=== PATIENT | male | born 1970 | race Caucasian/White ===

== ENCOUNTER 2016-10-21 13:31 | Emergency (ER) | payer SELFPAY ==
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
[2016-10-21] MEDS ORDERED: MELOXICAM 15 MG TABLET PO ONE (14:59)
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
[2016-10-21 16:07] VITALS: BP 154/93
== END 2016-10-21 15:50 | disposition home or self-care (01) ==
LOC: ER 13:31
DX: M25.511 Pain in right shoulder (principal); V18.9XXA Unspecified pedal cyclist injured in noncollision transport accident in traffic accident, initial encounter; G89.29 Other chronic pain; S46.001S Unspecified injury of muscle(s) and tendon(s) of the rotator cuff of right shoulder, sequela; X58.XXXS Exposure to other specified factors, sequela; Z91.013 Allergy to seafood; Z88.1 Allergy status to other antibiotic agents
CPT/HCPCS: 99283; 73030; L3650

== ENCOUNTER 2016-12-31 15:48 | Emergency (ER) | payer SELFPAY ==
[2016-12-31] MEDS ORDERED: PENICILLIN V POTASSIUM 250 MG TABLET PO ONE (16:25)
[2016-12-31] MEDS ORDERED: BUPIVACAINE HCL 0.5 % INJ/PF 30 ML SDV INJ ONE (16:25)
--- NOTE | 2016-12-31 16:37 | ER Document Report ---
HPI - HPI Pain Level: 4 Context: He is a female presents emergency Department complaining of tooth pain. Patient has a history of fractured tooth #5. States that he is due to have it pulled once his insurance is able to cover it. Patient admits to pain at the area for the past week. Denies any foul odor, drainage, difficulty swallowing, trismus, muffled speech. Denies fevers or chills - DERM Skin Color: Normal Past Medical History - Social History Smoking Status: Current Every Day Smoker Family History: Reviewed & Not Pertinent Patient has suicidal ideation: No Patient has homicidal ideation: No - Past Medical History Cardiac Medical History: Reports: Hx Congestive Heart Failure - Diastolic dysfunction Renal/ Medical History: Denies: Hx Peritoneal Dialysis GI Medical History: Reports: Hx Gastroesophageal Reflux Disease, Hx Hepatitis - Alcohol-induced Psychiatric Medical History: Reports: Hx Anxiety, Hx Attention Deficit Hyperactivity Disorder, Hx Depression Infectious Medical History: Reports: Hx Hepatitis - Alcohol-induced Past Surgical History: Reports: Hx Orthopedic Surgery - Immunizations Hx Diphtheria, Pertussis, Tetanus Vaccination: Yes Vertical Provider Document - CONSTITUTIONAL Agree With Documented VS: Yes Exam Limitations: No Limitations General Appearance: WD/WN, No Apparent Distress - INFECTION CONTROL TRAVEL OUTSIDE OF THE [place] IN LAST 30 DAYS: No - HEENT Mouth Diagram: 1 - Fractured tooth with evidence of gingival inflammation Notes: No evidence of peritonsillar retropharyngeal abscess. Airway is not compromised - NECK Neck: Normal Inspection, Other - No evidence of Chad's angina. negative: Lymphadenopathy-Left, Lymphadenopathy-Right - RESPIRATORY O2 Sat by Pulse Oximetry: 98 Course - Re-evaluation Re-evalutation: 12/31/16 17:38 Patient is a 46-year-old male seen initially stable, no acute distress and afebrile. Patient received a 5 mL dental block for his pain. Discharge home on antibiotics and follow up with his dentist - Vital Signs Vital signs: Temp Pulse Resp BP Pulse Ox 98.9 F 75 16 130/87 H 98 12/31/16 15:53 12/31/16 15:53 12/31/16 15:53 12/31/16 15:53 12/31/16 15:53 Discharge - Discharge Clinical Impression: Toothache Condition: Good Disposition: HOME, SELF-CARE Instructions: Toothache ([facility]), Oral Narcotic Medication ([facility]), Penicillin V K ( [facility]) Additional Instructions: Follow up with your dentist in 7-10 days [facility] [address] [place], [place] Monday mornings, by appointment [facility] [address] [place] [address] [facility] [place] [address] [facility] [address] [facility] [address] [facility] [email or web address] [facility] [address] [place] [address] Monday- 8:00am to 5:00 pm Will see patients from other [facility]. Charges based on income and family size and accepts Medicare, Medicaid, and Insurances Will pull molars [facility] [employer] [facility] [address] Hours of Operation 8:00 am - 4:30 pm weekdays The following dental offices accept Medicaid: [facility] Dr. Parisi Dr. Farrar Dr. Turner Dr. Tomlin Chepe Singer, Charli, and Violet oral surgery Dr. Stovall ([place]) Dr. Jimenez ([place]) [facility] Drs. Kendrick and Fabian ([place]) Dr. Powers ([place]) [facility] Dr. Bui ([place]) Drs. Young and ([place]) Medicaid Care Line Prescriptions: Oxycodone HCl/Acetaminophen [Percocet 5-325 mg Tablet] 1 - 2 tab PO Q4HP PRN # 15 tablet PRN Reason: Penicillin V Potassium [Penicillin Vk 500 mg Tablet] 500 mg PO BID #20 tablet Forms: Return to Work
[2016-12-31 17:00] VITALS: BP 121/71
== END 2016-12-31 16:59 | disposition home or self-care (01) ==
LOC: ER 15:48
PROC: 3E0T3BZ Introduction of Anesthetic Agent into Peripheral Nerves and Plexi, Percutaneous Approach (ICD-10-PCS; principal; 2016-12-31)
DX: K08.89 Other specified disorders of teeth and supporting structures (principal); K05.10 Chronic gingivitis, plaque induced; F17.200 Nicotine dependence, unspecified, uncomplicated
CPT/HCPCS: 99282

== ENCOUNTER 2017-06-18 14:01 | Emergency (ER) | payer OTHER ==
[2017-06-18 14:06] VITALS: BP 126/72
[2017-06-18] MEDS ORDERED: LIDOCAINE 2% VISCOUS SOLN 20 ML UDCUP PO ONE (14:47)
[2017-06-18] MEDS ORDERED: PENICILLIN V POTASSIUM 500 MG TABLET PO ONE (14:47)
--- NOTE | 2017-06-18 14:53 | ER Document Report ---
ED Oral Problem - General Chief Complaint: Toothache Stated Complaint: TOOTH PAIN Time Seen by Provider: 06/18/17 14:33 Mode of Arrival: Ambulatory Information source: Patient Notes: 46-year-old male presents to ED for complaint of dental pain 6-8 months intermittently. He states that he has rotten teeth on the top and that he plans to get them all out. He states he needs antibiotics for his tooth. He also states she needs pain medications. Patient claims that he has taken ibuprofen with no relief. His pain is in tooth #7. TRAVEL OUTSIDE OF THE U.S[place] IN LAST 30 DAYS: No - HPI Patient complains to provider of: Toothache Onset: Other - 6-8 months Onset: Gradual Quality of pain: Sharp, Throbbing Severity: Severe Pain Level: 5 Associated symptoms: Toothache Worsened by: Cold Relieved by: Nothing Recently seen / treated by doctor/dentist: No - Related Data Allergies/Adverse Reactions: crab Allergy (Severe, Verified 12/31/16 15:52) Difficulty breathing clindamycin Allergy (Intermediate, Verified 12/31/16 15:52) rash Past Medical History - General Information source: Patient - Social History Smoking Status: Former Smoker Cigarette use (# per day): No Chew tobacco use (# tins/day): No Smoking Education Provided: No Frequency of alcohol use: None - Former alcoholic Drug Abuse: None 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 denies: DM, Thyroid Disfunction Patient has suicidal ideation: No Patient has homicidal ideation: No - Past Medical History Cardiac Medical History: Reports: None Pulmonary Medical History: Reports: None Neurological Medical History: Reports: None Endocrine Medical History: Reports: None Renal/ Medical History: Reports: None Malignancy Medical History: Reports None GI Medical History: Reports: Hx Gastroesophageal Reflux Disease, Hx Hepatitis - Alcohol-induced Musculoskeltal Medical History: Reports Hx Musculoskeletal Trauma - Right knee dislocation Skin Medical History: Reports None Psychiatric Medical History: Reports: Hx Anxiety, Hx Attention Deficit Hyperactivity Disorder, Hx Depression Traumatic Medical History: Reports: None Infectious Medical History: Reports: Hx Hepatitis - Alcohol-induced Past Surgical History: Reports: Hx Orthopedic Surgery - Immunizations Immunizations up to date: Yes Hx Diphtheria, Pertussis, Tetanus Vaccination: Yes Review of Systems - Review of Systems Constitutional: No symptoms reported EENT: Mouth pain, Dental problem Cardiovascular: No symptoms reported Respiratory: No symptoms reported Gastrointestinal: No symptoms reported Genitourinary: No symptoms reported Male Genitourinary: No symptoms reported Musculoskeletal: No symptoms reported Skin: No symptoms reported Hematologic/Lymphatic: No symptoms reported Neurological/Psychological: No symptoms reported -: Yes All other systems reviewed and negative Physical Exam - Vital signs Vitals: Temp Pulse Resp BP Pulse Ox 99.3 F 81 20 126/72 H 98 06/18/17 14:04 06/18/17 14:04 06/18/17 14:04 06/18/17 14:04 06/18/17 14:04 Interpretation: Normal - General General appearance: Appears well, Alert - HEENT Head: Normocephalic, Atraumatic Eyes: Normal Pupils: PERRL Ears: Normal External canal: Normal Tympanic membrane: Normal Sinus: Normal Nasal: Normal Mouth/Lips: Caries Mucous membranes: Normal Teeth diagram: 1 - Dental cavity with pain and redness surrounding the tooth Pharynx: Normal Neck: Normal - Respiratory Respiratory status: No respiratory distress Chest status: Nontender Breath sounds: Normal Chest palpation: Normal - Cardiovascular Rhythm: Regular Heart sounds: Normal auscultation Murmur: No - Abdominal Inspection: Normal Distension: No distension Bowel sounds: Normal Tenderness: Nontender Organomegaly: No organomegaly - Back Back: Normal, Nontender - Extremities General upper extremity: Normal inspection, Nontender, Normal color, Normal ROM , Normal temperature General lower extremity: Normal inspection, Nontender, Normal color, Normal ROM , Normal temperature, Normal weight bearing. No: Mohamud's sign - Neurological Neuro grossly intact: Yes Cognition: Normal Orientation: AAOx4 Jacinta Coma Scale Eye Opening: Spontaneous [place] Coma Scale Verbal: Oriented [place] Coma Scale Motor: Obeys Commands [place] Coma Scale Total: 15 Speech: Normal Motor strength normal: LUE, RUE, LLE, RLE Sensory: Normal - Psychological Associated symptoms: Normal affect, Normal mood - Skin Skin Temperature: Warm Skin Moisture: Dry Skin Color: Normal Course - Vital Signs Vital signs: Temp Pulse Resp BP Pulse Ox 99.3 F 81 20 126/72 H 98 06/18/17 14:04 06/18/17 14:04 06/18/17 14:04 06/18/17 14:04 06/18/17 14:04 Discharge - Discharge Clinical Impression: Pain due to dental caries Condition: Stable Disposition: HOME, SELF-CARE Additional Instructions: TOOTHACHE: Your pain is due to dental decay. The tooth must be repaired in order for you to feel better. You will, therefore, be referred to a dentist. We do not have dentists on the staff at [facility]. Severe swelling or drainage around a tooth usually means a dental abscess. This also requires evaluation and treatment by the dentist, but antibiotics may be prescribed while awaiting dental treatment. You should be rechecked immediately if you develop major swelling of the face, increasing pain, a lump in the jaw or gums, headache, difficulty swallowing, or fever. PENICILLIN V K: You have been given a prescription for Penicillin VK. Your physician has determined that this is the best antibiotic for your condition. Pen VK can be taken with meals, however more of the antibiotic gets into the bloodstream if it's taken on an empty stomach. Penicillin usually has no side effects. However, allergy to penicillins is common. If you have had an allergic reaction to any drug of the penicillin family, you should never take any other penicillin. Notify your doctor at once if you develop hives, itching, swelling, faintness, or shortness of breath. You have been given lidocaine in the syringe that she can apply to the area every 3-4 hours for your dental pain. You need to follow-up with the dentist as soon as possible. Take [id number] ibuprofen. FOLLOW-UP CARE: You have been referred for follow-up care to the dentists listed below. Call the dentists office for an appointment as you were instructed or within the next two days. If you experience worsening or a significant change in your symptoms, notify the physician immediately or return to the Emergency Department at any time for re-evaluation. [facility] [address] Monday mornings, by appointment [facility] [address] [place] [address] [facility] [address] [facility] [address] [facility] [email or web address] [facility] [address] [place] [address] Monday- 8:00am to 5:00 pm Will see patients from other [facility]. Charges based on income and family size and accepts Medicare, Medicaid, and Insurances Will pull molars [facility] [employer] [facility] [address] Hours of Operation 8:00 am - 4:30 pm weekdays The following dental offices accept Medicaid: [facility] Dr. Parisi Dr. Farrar Dr. Turner Dr. Tomlin Chepe Singer, Charli, and Violet oral surgery Dr. Stovall ([place]) Dr. Jimenez ([place]) [facility] Drs. Jarquin ([place]) Dr. Powers ([place]) [facility] Dr. Bui ([place]) Drs. Young and ([place]) Medicaid Care Line Prescriptions: Penicillin V Potassium [Penicillin Vk 500 mg Tablet] 500 mg PO BID #20 tablet Forms: Elevated Blood Pressure, Return to Work
== END 2017-06-18 15:05 | disposition home or self-care (01) ==
LOC: ER 14:01
DX: K02.9 Dental caries, unspecified (principal); K08.89 Other specified disorders of teeth and supporting structures; Z87.891 Personal history of nicotine dependence
CPT/HCPCS: 99282; J3490

== ENCOUNTER 2018-02-10 10:34 | Emergency (ER) | payer OTHER ==
[2018-02-10 10:50] VITALS: BP 151/86
--- NOTE | 2018-02-10 11:12 | ER Document Report ---
ED General - General Chief Complaint: Rib Pain Stated Complaint: RIB PAIN Time Seen by Provider: 02/10/18 10:58 Mode of Arrival: Ambulatory Information source: Patient Notes: 47-year-old male presents to ED for complaint of extreme left rib pain that goes from the front to the back. He states he was lifting something when the pain started he thinks he pulled a muscle about 3 days ago. He states the pain is becoming sharper and it hurts when he lifts or takes a deep breath. TRAVEL OUTSIDE OF THE [place] IN LAST 30 DAYS: No - HPI Onset/Duration: Sudden, Persistent Quality of pain: Sharp, Stabbing Severity: Severe Pain Level: 5 Associated symptoms: Body/muscle aches, Hurts to breath Exacerbated by: Movement, Walking, Coughing, Deep breathing Relieved by: Denies Similar symptoms previously: No Recently seen / treated by doctor: No - Related Data Allergies/Adverse Reactions: crab Allergy (Severe, Verified 12/31/16 15:52) Difficulty breathing clindamycin Allergy (Intermediate, Verified 12/31/16 15:52) rash Past Medical History - General Information source: Patient - Social History Smoking Status: Former Smoker Cigarette use (# per day): No Chew tobacco use (# tins/day): No Smoking Education Provided: No Frequency of alcohol use: None - 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 denies: DM, Thyroid Disfunction - Past Medical History Cardiac Medical History: Reports: Hx Congestive Heart Failure - Diastolic dysfunction Pulmonary Medical History: Reports: None EENT Medical History: Reports: None Neurological Medical History: Reports: None Endocrine Medical History: Reports: None Renal/ Medical History: Reports: None Malignancy Medical History: Reports None GI Medical History: Reports: Hx Gastroesophageal Reflux Disease, Hx Hepatitis - Alcohol-induced Musculoskeltal Medical History: Reports Hx Arthritis, Reports Hx Musculoskeletal Deformity, Reports Hx Musculoskeletal Trauma - Right knee dislocation Skin Medical History: Reports None Psychiatric Medical History: Reports: Hx Anxiety, Hx Attention Deficit Hyperactivity Disorder, Hx Depression Infectious Medical History: Reports: Hx Hepatitis - Alcohol-induced Past Surgical History: Reports: Hx Orthopedic Surgery - Knee - Immunizations Immunizations up to date: Yes Hx Diphtheria, Pertussis, Tetanus Vaccination: Yes Review of Systems - Review of Systems Constitutional: No symptoms reported EENT: No symptoms reported Cardiovascular: No symptoms reported Respiratory: Other - Left rib pain painful to take a deep breath Gastrointestinal: No symptoms reported Genitourinary: No symptoms reported Male Genitourinary: No symptoms reported Musculoskeletal: No symptoms reported Skin: No symptoms reported Hematologic/Lymphatic: No symptoms reported Neurological/Psychological: No symptoms reported Physical Exam - Vital signs Vitals: Temp Pulse Resp BP Pulse Ox 99.3 F 69 20 151/86 H 98 02/10/18 10:47 02/10/18 10:47 02/10/18 10:47 02/10/18 10:47 02/10/18 10:47 Interpretation: Normal - General General appearance: Appears well, Alert - HEENT Head: Normocephalic, Atraumatic Eyes: Normal Pupils: PERRL - Respiratory Respiratory status: No respiratory distress Chest status: Tender, Pain on movement, Pain with cough, Pain with deep breathing. No: Ecchymosis Breath sounds: Normal Chest palpation: Normal - Cardiovascular Rhythm: Regular Heart sounds: Normal auscultation Murmur: No - Abdominal Inspection: Normal Distension: No distension Bowel sounds: Normal Tenderness: Nontender Organomegaly: No organomegaly - Back Back: Normal, Nontender - Extremities General upper extremity: Normal inspection, Nontender, Normal color, Normal ROM , Normal temperature General lower extremity: Normal inspection, Nontender, Normal color, Normal ROM , Normal temperature, Normal weight bearing. No: Mohamud's sign - Neurological Neuro grossly intact: Yes Cognition: Normal Orientation: AAOx4 Trego Coma Scale Eye Opening: Spontaneous Jacinta Coma Scale Verbal: Oriented Trego Coma Scale Motor: Obeys Commands Jacinta Coma Scale Total: 15 Speech: Normal Motor strength normal: LUE, RUE, LLE, RLE Sensory: Normal - Psychological Associated symptoms: Normal affect, Normal mood - Skin Skin Temperature: Warm Skin Moisture: Dry Skin Color: Normal Course - Re-evaluation Re-evalutation: 02/10/18 12:18 After performing a Medical Screening Examination, I estimate there is LOW risk for RUPTURED ESOPHAGUS, PNEUMOTHORAX, PULMONARY EMBOLISM, ACUTE CORONARY SYNDROME, OR THORACIC AORTIC DISSECTION, thus I consider the discharge disposition reasonable. I have reevaluated this patient multiple times and no significant life threatening changes are noted. The patient and I have discussed the diagnosis and risks, and we agree with discharging home with close follow-up. We also discussed returning to the Emergency Department immediately if new or worsening symptoms occur. We have discussed the symptoms which are most concerning (e.g., bloody sputum, worsening pain or shortness of breath) that necessitate immediate return. - Vital Signs Vital signs: Temp Pulse Resp BP Pulse Ox 99.3 F 69 20 151/86 H 98 02/10/18 10:47 02/10/18 10:47 02/10/18 10:47 02/10/18 10:47 02/10/18 10:47 - Diagnostic Test Radiology reviewed: Image reviewed, Reports reviewed Discharge - Discharge Clinical Impression: Rib pain on left side HTN (hypertension) Qualifiers: Hypertension type: unspecified Qualified Code(s): I10 - Essential (primary) hypertension Condition: Stable Disposition: HOME, SELF-CARE Instructions: Family Physicians / Practices Additional Instructions: Costochondritis Your chest pain is coming from the rib cartilages in the chest wall. This is often caused by subtle straining of the ribs near the breastbone. The strain can occur from a mild injury, coughing or sneezing with a "cold," vigorous vomiting, or even from rib compression while sleeping. Often the pain doesn't begin until a couple of days after the strain. Persons with arthritis are especially prone to this type of pain, due to inflammation of the cartilage joints near the breast bone. But often, there is no clear reason why it happens. Rest from strenuous physical activity. This kind of chest pain is usually made worse by movement of the chest. Depending on the symptoms, we may prescribe medicine for pain and inflammation. Apply gentle warmth to the painful area for 15 minutes every hour or two. You should call contact the doctor immediately if things change. Further evaluation is needed if you develop a fever or cough, if the nature of the pain changes, or if you become short of breath. Muscle Strain You have strained a muscle -- torn the fibers within the muscle. This often occurs with strenuous exertion, or during an injury that suddenly stretches the muscle. The seriousness of a strain varies. Some strains heal within days, others cause problems for months. X-rays cannot show a muscle strain. X-rays are taken only if symptoms suggest that a fracture could be present. The usual treatment of a muscle strain is rest and ice packs. Sometimes, a sling, splint, or crutches may be necessary to rest the muscle. The muscle can be used again once pain subsides. Severe strains require a special exercise and stretching program to prevent permanent stiffness and disability. Your doctor will advise you if this will be necessary. Call the doctor immediately if pain or swelling becomes severe, or if numbness or discoloration develop. Anti-Inflammatory Medication You have received a prescription for an antiinflammatory agent. This is an excellent, safe drug for pain control. In addition, it has potent antiinflammatory effects which are beneficial, especially in the treatment of injuries, arthritis, or tendonitis. It's best to take this medicine with food. Persons with ulcer disease or allergy to aspirin should notify their physician of this before taking this drug. Take the medication exactly as prescribed. Don't take additional doses unless instructed to do so by your doctor. If you develop wheezing, shortness of breath, hives, faintness, stomach pain, vomiting, or dark black stools, return for re-evaluation at once. Muscle Relaxers Muscle relaxing medications are usually prescribed for acute muscle spasm or injury to the neck and back. They are often combined with antiinflammatory pain medication for increased relief. You may stop the muscle relaxer when the pain and stiffness have improved. Start the medication again if spasms recur. Muscle relaxers may cause drowsiness, especially with the first dose. Do not operate machinery or drive while under the effects of the medication. Most muscle relaxers last up to 24 hours. Do not combine the medication with alcohol. FOLLOW-UP CARE: If you have been referred to a physician for follow-up care, call the physician s office for an appointment as you were instructed or within the next two days. If you experience worsening or a significant change in your symptoms, notify the physician immediately or return to the Emergency Department at any time for re-evaluation. Prescriptions: Cyclobenzaprine HCl [Flexeril 10 mg Tablet] 10 mg PO TIDP PRN #15 tab PRN Reason: Naproxen 500 mg PO BID #14 tablet Forms: Elevated Blood Pressure
--- NOTE | 2018-02-10 11:45 | RADIOLOGY REPORT (SQ) ---
EXAM DESCRIPTION: RIBS LEFT W/PA CHEST COMPLETED DATE/TIME: 02/10/2018 11:33 am REASON FOR STUDY: pain COMPARISON: None. TECHNIQUE: Frontal view of the chest and additional views of the left ribs acquired. NUMBER OF VIEWS: Four view. LIMITATIONS: None. FINDINGS: FRONTAL CXR: No pneumothorax. No pleural effusion. No atelectasis or infiltrates. RIBS: No displaced rib fractures. No lytic or blastic bony lesions. OTHER: No other significant finding. IMPRESSION: NO PNEUMOTHORAX. NO DISPLACED RIB FRACTURES. COMMENT: SITE OF TRAUMA/COMPLAINT MARKED/STAMP COMPLETED: NO. TECHNICAL DOCUMENTATION: JOB ID: [id number] [employer]- All Rights Reserved Reading location - IP/workstation name: [email or web address]
[2018-02-10] MEDS ORDERED: KETOROLAC TROMETHAMINE INJ/PF 30 MG/1 ML SDV IM ONE (12:17)
--- NOTE | 2018-02-10 15:51 | EKG REPORT ---
SEVERITY:- ABNORMAL ECG - SINUS RHYTHM ABNRM R PROG, CONSIDER ASMI OR LEAD PLACEMENT : Confirmed by: Raul Cole MD 10-Feb-2018 15:50:33
== END 2018-02-10 12:26 | disposition home or self-care (01) ==
LOC: ER 10:34
DX: R07.81 Pleurodynia (principal); I10 Essential (primary) hypertension; M79.1 Myalgia; X50.9XXA Other and unspecified overexertion or strenuous movements or postures, initial encounter; Z87.891 Personal history of nicotine dependence
CPT/HCPCS: 93005; 99283; 96372; 71101; 93010; J1885

== ENCOUNTER 2019-07-22 11:31 | Emergency (ER) | payer SELFPAY ==
[2019-07-22 11:55] VITALS: BP 133/93
[2019-07-22] MEDS ORDERED: CIPROFLOXACIN HCL/DEXAMETH OTIC DROP 7.5 ML AD ONE (12:38)
--- NOTE | 2019-07-22 12:39 | ER Document Report ---
HPI - HPI Time Seen by Provider: 07/22/19 12:22 Context: Patient is a 48-year-old male presents the emergency department with a chief complaint of right ear pain. Patient states that 2 days ago it was hurting and he took a Q-tip and cleaned out his ears. Yesterday he noticed blood from his e ar. Patient states that he does have some body aches. He took some ibuprofen at 930 this morning. Current medications are Wellbutrin, Adderall, clonidine, Seroquel, and BuSpar. - CONSTITUTIONAL Constitutional: DENIES: Fever, Chills - EENT EENT: REPORTS: Ear Pain - Bilateral. DENIES: Sore Throat, Nasal Drainage-Clear, Nasal Drainage-Purulent, Congestion, Eye problems - NEURO Neurology: DENIES: Headache - CARDIOVASCULAR Cardiovascular: DENIES: Chest pain - RESPIRATORY Respiratory: DENIES: Trouble Breathing, Coughing - GASTROINTESTINAL Gastrointestinal: DENIES: Abdominal Pain - MUSCULOSKELETAL Musculoskeletal: DENIES: Extremity pain - DERM Skin Color: Normal Skin Problems: None Past Medical History - General Information source: Patient - Social History Smoking Status: Unknown if Ever Smoked Family History: CAD, COPD, CVA, Hyperlipidemia, Hypertension, Malignancy. denies: DM, Thyroid Disfunction - Past Medical History Cardiac Medical History: Reports: Hx Congestive Heart Failure - Diastolic dysfunction Renal/ Medical History: Denies: Hx Peritoneal Dialysis GI Medical History: Reports: Hx Gastroesophageal Reflux Disease, Hx Hepatitis - Alcohol-induced Musculoskeletal Medical History: Reports Hx Arthritis, Reports Hx Musculoskeletal Deformity, Reports Hx Musculoskeletal Trauma - Right knee dislocation Psychiatric Medical History: Reports: Hx Anxiety, Hx Attention Deficit Hyperactivity Disorder, Hx Depression Infectious Medical History: Reports: Hx Hepatitis - Alcohol-induced Past Surgical History: Reports: Hx Orthopedic Surgery - Lt Knee - Immunizations Immunizations up to date: Yes Hx Diphtheria, Pertussis, Tetanus Vaccination: Yes Vertical Provider Document - CONSTITUTIONAL Agree With Documented VS: Yes Exam Limitations: No Limitations General Appearance: No Apparent Distress - INFECTION CONTROL TRAVEL OUTSIDE OF THE [place] IN LAST 30 DAYS: No - HEENT HEENT: Atraumatic, Normocephalic, PERRLA. negative: Conjuctival Injection, Pharyngeal Exudate, Pharyngeal Tenderness, Pharyngeal Erythema, Tympanic Membrane Red, Tympanic Membrane Bulging Notes: Erythema at right external auditory canal. Bleeding noted. Eczema noted to left external auditory canal - RESPIRATORY Respiratory: No Respiratory Distress - CARDIOVASCULAR Cardiovascular: Regular Rhythm Pulses: Normal: Radial - MUSCULOSKELETAL/EXTREMETIES Musculoskeletal/Extremeties: FROM - NEURO Level of Consciousness: Awake, Alert, Appropriate - DERM Integumentary: Warm, Dry, No Rash Course - Re-evaluation Re-evalutation: 07/22/19 12:37 Patient's physical exam is consistent with eczema in his external auditory canal causing otitis externa of the right external auditory canal. I have a very low suspicion for mastoiditis, as the patient does not have pain at the mastoid process. Patient will be started on Ciprodex. He will follow-up with ENT in regards to this visit. Follow-up precautions were given. Verbal discharge instructions were given to the patient. They verbalized understanding. They are stable for discharge. - Vital Signs Vital signs: Temp Pulse Resp BP Pulse Ox 98.2 F 87 16 133/93 H 97 07/22/19 11:39 07/22/19 11:39 07/22/19 11:39 07/22/19 11:39 07/22/19 11:39 Discharge - Discharge Clinical Impression: Otitis externa Qualifiers: Otitis externa type: noninfectious Noninfectious otitis externa type: eczematoid Chronicity: acute Laterality: right Qualified Code(s): H60.541 - Acute eczematoid otitis externa, right ear Condition: Stable Disposition: HOME, SELF-CARE Instructions: Use of Ear Drops ([facility]), Otitis Externa ([facility]) Additional Instructions: You were seen today in the emergency department for right ear pain. You are being sent home with antibiotic/steroid eardrops. Place 4 drops to your right ear twice a day for 7 days. Follow-up with ENT, as you have eczema in your left ear. You are also being referred to [facility] and [facility] for regular care. These are free clinics that are income based clinics that may help you with medical care. Forms: Return to Work Referrals: AMAURY BRENNAN DO [ASSOCIATE] - Follow up as needed [facility] [Provider Group] - Follow up as needed [facility] [Provider Group] - Follow up as needed
== END 2019-07-22 12:49 | disposition home or self-care (01) ==
LOC: ER 11:31
DX: H60.541 Acute eczematoid otitis externa, right ear (principal); H92.03 Otalgia, bilateral; F41.9 Anxiety disorder, unspecified; F32.9 Major depressive disorder, single episode, unspecified; F90.9 Attention-deficit hyperactivity disorder, unspecified type; Z79.899 Other long term (current) drug therapy
CPT/HCPCS: 99282; J3490

== ENCOUNTER 2019-12-15 11:51 | Emergency (ER) | payer SELFPAY ==
--- NOTE | 2019-12-15 12:07 | ER Document Report ---
ED Medical Screen (RME) - General Chief Complaint: Memory Loss Stated Complaint: ALTERED MENTAL STATUS Time Seen by Provider: 12/15/19 11:57 Mode of Arrival: Ambulatory Information source: Patient Notes: 49-year-old male presents emergency department with complaints of memory loss for the past 8 years. Reports recent increase in loss. 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 He reports this is happening more often. He read online he is worried that he is Alzheimer's. Patient does admit that he drinks sometimes up to 1/5 the night. Reports he smoked pot a couple weeks ago but otherwise denies drug use. Unsure of family history of Alzheimer's but reports he remembers something about dementia. I have greeted and performed a rapid initial assessment of this patient. A comprehensive ED assessment and evaluation of the patient, analysis of test results and completion of the medical decision making process will be conducted by additional ED providers. TRAVEL OUTSIDE OF THE [place] IN LAST 30 DAYS: No - Related Data Allergies/Adverse Reactions: crab Allergy (Severe, Verified 03/26/18 18:05) Difficulty breathing clindamycin Allergy (Intermediate, Verified 03/26/18 18:05) rash Past Medical History - Past Medical History Cardiac Medical History: Reports: Hx Congestive Heart Failure - Diastolic dysfunction Renal/ Medical History: Denies: Hx Peritoneal Dialysis GI Medical History: Reports: Hx Gastroesophageal Reflux Disease, Hx Hepatitis - Alcohol-induced Musculoskeltal Medical History: Reports Hx Arthritis, Reports Hx Musculoskeletal Deformity, Reports Hx Musculoskeletal Trauma - Right knee dislocation Psychiatric Medical History: Reports: Hx Anxiety, Hx Attention Deficit Hyperactivity Disorder, Hx Depression Infectious Medical History: Reports: Hx Hepatitis - Alcohol-induced Past Surgical History: Reports: Hx Orthopedic Surgery - Lt Knee - Immunizations Immunizations up to date: Yes Hx Diphtheria, Pertussis, Tetanus Vaccination: Yes Physical Exam - Vital signs Vitals: Temp Pulse Resp BP Pulse Ox 97.5 F 97 20 133/80 H 97 12/15/19 11:57 12/15/19 11:57 12/15/19 11:57 12/15/19 11:57 12/15/19 11:57 Course - Vital Signs Vital signs: Temp Pulse Resp BP Pulse Ox 97.5 F 97 20 133/80 H 97 12/15/19 11:57 12/15/19 11:57 12/15/19 11:57 12/15/19 11:57 12/15/19 11:57
[2019-12-15 12:51] LABS: ALBUMIN 4.4 g/dL (3.5-5.0); ALKALINE PHOSPHATASE 121 U/L (38-126); ANION GAP 11 (5-19); ASPARTATE AMINO TRANSFERASE 226 U/L (17-59); BILIRUBIN,DIRECT 0.5 mg/dL (0.0-0.4); BLOOD UREA NITROGEN 17 mg/dL (7-20); CALCIUM 9.6 mg/dL (8.4-10.2); CARBON DIOXIDE 29 mmol/L (22-30); CHLORIDE 102 mmol/L (98-107); GLUCOSE 107 mg/dL (75-110); POTASSIUM 4.1 mmol/L (3.6-5.0); TOTAL PROTEIN 7.7 g/dL (6.3-8.2)
[2019-12-15 12:52] LABS: ABSOLUTE EOSINOPHILS # (AUTO) 0.2 10^3/uL (0.0-0.6); ABSOLUTE MONOCYTES (AUTO) 0.5 10^3/uL (0.1-1.4); ABSOLUTE NEUT (AUTO) 3.2 10^3/uL (1.7-8.2); BASOPHILS % (AUTO) 0.6 % (0-2); EOSINOPHILS % (AUTO) 4.1 % (0-6); HEMATOCRIT 43.9 % (37.9-51.0); HEMOGLOBIN 15.3 g/dL (13.5-17.0); LYMPHOCYTES % (AUTO) 20.3 % (13-45); MEAN CORPUSCULAR HEMOGLOBIN 31.8 pg (27.0-33.4); MEAN CORPUSCULAR HGB CONC 34.9 g/dL (32.0-36.0); MEAN CORPUSCULAR VOLUME 91 fl (80-97); MONOCYTES % (AUTO) 10.6 % (3-13); PLATELET COUNT 102 10^3/uL (150-450); RED BLOOD COUNT 4.81 10^6/uL (4.35-5.55); RED CELL DISTRIBUTION WIDTH 13.8 % (11.5-14.0); SEGMENTED NEUTROPHILS % (AUTO) 64.4 % (42-78); TOTAL CELLS COUNTED % (AUTO) 100 %
--- NOTE | 2019-12-15 12:55 | ER Document Report ---
ED General - General Chief Complaint: Memory Loss Stated Complaint: ALTERED MENTAL STATUS Time Seen by Provider: 12/15/19 11:57 Mode of Arrival: Ambulatory Notes: CHIEF COMPLAINT: I think I have Alzheimer's HPI: 49-year-old male with no physical complaints presenting to the emergency department with a complaint of "I think I have Alzheimer's". Patient states over the last 6 or 7 years he has found himself to be forgetful. 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 Patient denies chest pain shortness of breath fever nausea vomiting headache visual change or loss. Has not seen a primary care provider for evaluation of his symptoms. States he was researching on the Internet and that all of the symptoms of Alzheimer's fit what is going on with him at this time ROS: See HPI - all other systems were reviewed and are otherwise negative Constitutional: no fever Eyes: no drainage, no blurred vision ENT: no runny nose, no sore throat Cardiovascular: no chest pain Resp: no SOB, no cough GI: no vomiting, no diarrhea, no abdominal pain : no dysuria Integumentary: no rash Allergy: no hives Musculoskeletal: no extremity pain or swelling Neurological: no numbness/tingling, no weakness MEDICATIONS: I agree with the patient medications as charted by the RN. ALLERGIES: I agree with the allergies as charted by the RN. PAST MEDICAL HISTORY/PAST SURGICAL HISTORY: Reviewed and agree as charted by RN. SOCIAL HISTORY: Reviewed and agree as charted by RN. FAMILY HISTORY: No significant familial comorbid conditions directly related to patient complaint EXAM: Reviewed vital signs as charted by RN. CONSTITUTIONAL: Alert and oriented and responds appropriately to questions. Well-appearing; well-nourished HEAD: Normocephalic; atraumatic EYES: PERRL; Conjunctivae clear, sclerae non-icteric ENT: normal nose; no rhinorrhea; moist mucous membranes; pharynx without lesions noted, no uvula edema or deviation, no tonsillar hypertrophy, phonation normal NECK: Supple without meningismus; non-tender; no cervical lymphadenopathy, no masses CARD: RRR; no murmurs, no clicks, no rubs, no gallops; symmetric distal pulses RESP: Normal chest excursion without splinting or tachypnea; breath sounds clear and equal bilaterally; no wheezes, no rhonchi, no rales, pulse oximetry ABD/GI: Normal bowel sounds; non-distended; soft, non-tender, no rebound, no guarding; no palpable organomegaly or masses. BACK: The back appears normal and is non-tender to palpation, there is no CVA tenderness EXT: Normal ROM in all joints; non-tender to palpation; no cyanosis, no effusions, no edema SKIN: Normal color for age and race; warm; dry; good turgor; no acute lesions noted NEURO: Moves all extremities equally; Motor and sensory function intact. PSYCH: The patient's mood and manner are appropriate. Grooming and personal hygiene are appropriate. MDM: 49-year-old male presenting because of memory loss issues. No headache, no neurologic changes. He is alert and awake x3. Initial screening labs ordered via triage process. If lab work is normal will refer to PCP for more definitive evaluation of his forgetfulness TRAVEL OUTSIDE OF THE [place] IN LAST 30 DAYS: No - Related Data Allergies/Adverse Reactions: crab Allergy (Severe, Verified 03/26/18 18:05) Difficulty breathing clindamycin Allergy (Intermediate, Verified 03/26/18 18:05) rash Past Medical History - General Information source: Patient - Social History Smoking Status: Former Smoker Family History: CAD, COPD, CVA, Hyperlipidemia, Hypertension, Malignancy. denies: DM, Thyroid Disfunction Patient has suicidal ideation: No Patient has homicidal ideation: No - Past Medical History Cardiac Medical History: Reports: Hx Congestive Heart Failure - Diastolic dysfunction Renal/ Medical History: Denies: Hx Peritoneal Dialysis GI Medical History: Reports: Hx Gastroesophageal Reflux Disease, Hx Hepatitis - Alcohol-induced Musculoskeletal Medical History: Reports Hx Arthritis, Reports Hx Musculoskeleta l Deformity, Reports Hx Musculoskeletal Trauma - Right knee dislocation Psychiatric Medical History: Reports: Hx Anxiety, Hx Attention Deficit Hyperactivity Disorder, Hx Depression Infectious Medical History: Reports: Hx Hepatitis - Alcohol-induced Past Surgical History: Reports: Hx Orthopedic Surgery - Lt Knee - Immunizations Immunizations up to date: Yes Hx Diphtheria, Pertussis, Tetanus Vaccination: Yes Physical Exam - Vital signs Vitals: Temp Pulse Resp BP Pulse Ox 97.5 F 97 20 133/80 H 97 12/15/19 11:57 12/15/19 11:57 12/15/19 11:57 12/15/19 11:57 12/15/19 11:57 Course - Re-evaluation Re-evalutation: 12/15/19 14:45 Patient does have alcoholism history. Patient is positive for alcohol, also positive for marijuana and amphetamines, does not list Adderall or other medications that would flag positive. Will recommend that he stop using alcohol and drugs, follow-up with a primary care provider - Vital Signs Vital signs: Temp Pulse Resp BP Pulse Ox 97.5 F 97 20 133/80 H 97 12/15/19 11:57 12/15/19 11:57 12/15/19 11:57 12/15/19 11:57 12/15/19 11:57 - Laboratory Result Diagrams: 12/15/19 12:10 12/15/19 12:10 Laboratory results interpreted by me: 12/15/19 12/15/19 12/15/19 12:10 12:10 13:30 Plt Count 102 L Direct Bilirubin 0.5 H AST 226 H ALT 145 H Urine Urobilinogen 2.0 H Discharge - Discharge Clinical Impression: Forgetfulness, Marijuana use, Alcohol use, Amphetamine use disorder, mild Condition: Stable Disposition: HOME, SELF-CARE Additional Instructions: There was no definitive reason to explain your episodes of forgetfulness over the last years but you did flag positive for marijuana, amphetamines and alcohol today. You should stop using all of the above and will likely see improvement in the forgetfulness. A primary care referral has been listed for you to call and arrange further follow-up and evaluation Referrals: MIL MORENO DO [NO LOCAL MD] - Follow up as needed
--- NOTE | 2019-12-15 13:56 | RADIOLOGY REPORT (SQ) ---
EXAM DESCRIPTION: CT HEAD WITHOUT COMPLETED DATE/TIME: 12/15/2019 1:40 pm REASON FOR STUDY: memory loss COMPARISON: Or TECHNIQUE: Axial images acquired through the brain without intravenous contrast. Images reviewed wi th bone, brain and subdural windows. Additional sagittal and coronal reconstructions were generated. Images stored on PACS. All CT scanners at this facility use dose modulation, iterative reconstruction, and/or weight based d osing when appropriate to reduce radiation dose to as low as reasonably achievable (ALARA). [facility]: Dose Right [facility]: CareDose [facility]: Dose Right [facility]: Teradose 4D [facility]: BeMyGuest RADIATION DOSE: CT Rad equipment meets quality standard of care and radiation dose reduction techniq ues were employed. CTDIvol: 53.2 mGy. DLP: 1044 mGy-cm. mGy. LIMITATIONS: None. FINDINGS: VENTRICLES: Normal size and contour. CEREBRUM: No masses. No hemorrhage. No midline shift. No evidence for acute infarction. Normal gra y/white matter differentiation. No areas of low density in the white matter. CEREBELLUM: No masses. No hemorrhage. No alteration of density. No evidence for acute infarction. EXTRAAXIAL SPACES: No fluid collections. No masses. ORBITS AND GLOBE: No intra- or extraconal masses. Normal contour of globe without masses. CALVARIUM: No fracture. PARANASAL SINUSES: No fluid or mucosal thickening. SOFT TISSUES: No mass or hematoma. OTHER: No other significant finding. IMPRESSION: NORMAL BRAIN CT WITHOUT CONTRAST. EVIDENCE OF ACUTE STROKE: NO. COMMENT: Quality ID # [id number]: Final reports with documentation of one or more dose reduction techniques (e.g., Automated exposure control, adjustment of the mA and/or kV according to patient size, use of iterative reconstruction technique) TECHNICAL DOCUMENTATION: JOB ID: [id number] 2010 [employer]- All Rights Reserved Reading location - IP/workstation name: [email or web address]
[2019-12-15 14:07] LABS: APPEARANCE,URINE CLEAR; BILIRUBIN,URINE NEGATIVE (NEGATIVE); COLOR,URINE YELLOW; GLUCOSE, URINE NEGATIVE (NEGATIVE); KETONES,URINE NEGATIVE (NEGATIVE); LEUKOCYTE ESTERASE,URINE NEGATIVE (NEGATIVE); NITRITE,URINE NEGATIVE (NEGATIVE); PROTEIN,URINE NEGATIVE (NEGATIVE); URINE SPECIFIC GRAVITY 1.006
[2019-12-15 14:26] LABS: URINE BARBITURATES SCREEN NEGATIVE; URINE BENZODIAZEPINES SCREEN NEGATIVE; URINE COCAINE SCREEN NEGATIVE; URINE PHENCYCLIDINE SCREEN NEGATIVE
[2019-12-15 14:36] LABS: URINE METHADONE SCREEN NEGATIVE
[2019-12-15 14:42] LABS: URINE AMPHETAMINES SCREEN UNCONFIRMED POSITIVE; URINE MARIJUANA (THC) SCREEN UNCONFIRMED POSITIVE
[2019-12-15 15:17] VITALS: BP 133/89
== END 2019-12-15 15:17 | disposition home or self-care (01) ==
LOC: ER 11:51
DX: R41.82 Altered mental status, unspecified (principal); F12.90 Cannabis use, unspecified, uncomplicated; F15.929 Other stimulant use, unspecified with intoxication, unspecified; I50.9 Heart failure, unspecified; Z88.3 Allergy status to other anti-infective agents
CPT/HCPCS: 36415; 70450; 80053; 80307; 81001; 85025; 99284

== ENCOUNTER → 2020-01-30 | Outpatient (CLI) | payer SELFPAY ==
--- NOTE | 2020-01-30 11:55 | ER RDC ASSESSMENT REPORT ---
Intake - In the Last 14 days --City/State: Has been in [place] Have you been in close contact with someone CONFIRMED: No Worked in Healthcare?: No - Symptoms Subjective Fever([place] feverish): Yes Chills: Yes Muscule Aches: Yes Runny Nose: Yes Sore Throat: No Cough (New or worsening chronic cough): Yes --How many day(s)?: dry Shortness of breath: Yes Nausea or Vomiting: No Headache: Yes Abdominal Pain: No Diarrhea(3 or more loose stools in last 24 hours): No - Do you have any of the following Chronic lung disease: Asthma or emphysema or COPD: No Cystic Fibrosis: No Diabetes: No High Blood Pressure: Yes Cardiovascular Disease: Yes Chronic Kidney Disease: No Chronic Liver Disease: No Chronic blood disorder like Sickle Cell Disease: No Weak immune system due to disease or medication: No Neurologic condition that limits movement: No Developmental delay - Moderate to Severe: No Recent (within past 2 weeks) or current : No Morbid Obesity (>100 pounds over ideal weight): No Obesity Comment: Height 6 feet 1 inches weight 240 pounds Other Comment: History of depression and anxiety - Objective Temperature: 96.7 F Pulse Rate: 99 Respiratory Rate: 20 Blood Pressure: 122/85 O2 Sat by Pulse Oximetry: 94 Objective: Given above, testing performed: If Testing Performed: Test Specimen Type Sent to General - General Information source: Patient Notes: Patient here for Covid testing. patient has been in [place]. Started feeling sick Monday. [place] feverish and felt like going to pass out when got up. Reports an occasional cough. States does not have a local PCP. Denies any lung history. Quit smoking 6 years ago. - Related Data Allergies/Adverse Reactions: crab Allergy (Severe, Verified 03/26/18 18:05) Difficulty breathing clindamycin Allergy (Intermediate, Verified 03/26/18 18:05) rash Past Medical History - Social History Smoking Status: Former Smoker - [place] quit 6 years ago Family History: CAD, COPD, CVA, Hyperlipidemia, Hypertension, Malignancy. denies: DM, Thyroid Disfunction - Past Medical History Cardiac Medical History: Reports: Hx Congestive Heart Failure - Diastolic dysfunction Renal/ Medical History: Denies: Hx Peritoneal Dialysis GI Medical History: Reports: Hx Gastroesophageal Reflux Disease, Hx Hepatitis - Alcohol-induced Musculoskeletal Medical History: Reports Hx Arthritis, Reports Hx Musculoskeletal Deformity, Reports Hx Musculoskeletal Trauma - Right knee dislocation Psychiatric Medical History: Reports: Hx Anxiety, Hx Attention Deficit Hyperactivity Disorder, Hx Depression Infectious Medical History: Reports: Hx Hepatitis - Alcohol-induced Past Surgical History: Reports: Hx Orthopedic Surgery - Lt Knee Physical Exam - General General appearance: Appears well, Alert In distress: None Notes: PHYSICAL EXAMINATION: GENERAL: Well-appearing and in no acute distress. HEAD: Atraumatic, normocephalic. EYES: sclera anicteric, conjunctiva are normal. ENT: nares patent. Moist mucous membranes. NECK: Normal range of motion, supple without lymphadenopathy LUNGS: CTAB and equal. No wheezes rales or rhonchi. Rare expiratory wheeze noted. Cleared with dry cough. HEART: Regular rate and rhythm without murmurs ABDOMEN: Soft, nontender, normal bowel sounds, no guarding. EXTREMITIES: No cyanosis. NEUROLOGICAL: . Normal speech. PSYCH: Normal mood, normal affect. SKIN: Warm, Dry, normal turgor, Diagnostic Results Laboratory Results: Patient instructed on negative rapid strep and negative rapid flu results. Pending strep culture pending COVID testing results. patient provided instructions regarding COVID include: As a person under investigation for Covid 19, the [place] department of Health and Human Services, division of public health advises you to adhere to the following guidance until your test results are reported to you. If your test result is positive, you will receive additional information from your provider and your local health department at that time. Remain at home until you are cleared by the health provider or public health authorities. Keep a log of visitors to your home, notify any visitors to your home of your isolation status. If you plan to move to a new address or leave the critical access hospital, notify the local health department in your County. Call your doctor or seek care if you have an urgent medical need. Before seeking medical care, call ahead to get instructions from the provider before arriving at the medical office clinic or hospital. Notify them that you are being tested for the virus that causes Covid 19 so that arrangements can be made, as necessary, to prevent transmission to others in the healthcare setting. Next, notify the local health department in your county. If a medical emergency arises and you need to call 911, inform the first r esponders that you are being tested for the virus that causes Covid 19. Next, notify the local health department in your county. Patient Education/Counseling Counseling/Education: Patient presents with upper respiratory symptoms worrisome for possible Covid 19. Patient does not have emergency worring symptoms such as difficulty breathing, shortness of breath, chest pain, pressure, confusion or cyanosis. Patient appears suitable for discharge. Patient instructed to go to ED for persistent or worsening symptoms. Patient's vital signs are stable and patient is nontoxic in appearance. Good return precautions have been discussed with patient, patient verbalized understanding and is agreeable with discharge plan of care at this time. RDC Discharge - Discharge Clinical Impression: COVID - 19 SCREENING Condition: Stable Disposition: Home; Selfcare
[2020-01-30 12:27] VITALS: BP 122/85
[2020-01-30 13:25] LABS: A TYPE INFLUENZA AG NEGATIVE (NEGATIVE); B INFLUENZA AG NEGATIVE (NEGATIVE)
== END ==
LOC: RDC 11:45
PROVIDERS: ATTEND Nurse Practitioner Family
DX: Z20.828 Contact with and (suspected) exposure to other viral communicable diseases (principal); R50.9 Fever, unspecified; R06.02 Shortness of breath; R05 Cough; M79.10 Myalgia, unspecified site; R09.89 Other specified symptoms and signs involving the circulatory and respiratory systems; R51 Headache; I10 Essential (primary) hypertension; K21.9 Gastro-esophageal reflux disease without esophagitis; F41.8 Other specified anxiety disorders; Z88.1 Allergy status to other antibiotic agents; Z91.013 Allergy to seafood; Z87.891 Personal history of nicotine dependence; Z86.79 Personal history of other diseases of the circulatory system; Z87.898 Personal history of other specified conditions
CPT/HCPCS: 87070; 87635; 87804; 87880; 99211

== ENCOUNTER 2020-05-07 20:06 | Emergency (ER) | payer SELFPAY ==
--- NOTE | 2020-05-07 20:39 | ER Document Report ---
ED Medical Screen (RME) - General Chief Complaint: Fever Stated Complaint: FEVER, COUGH, CHILLS Primary Care Provider: CAROLINE,NO [Primary Care Provider] - Follow up as needed Notes: Patient is a 49-year-old white male with a history of anxiety and depression who presents to the emergency department today with a chief complaint of fever and cough for the past 3 days. States cough been productive in nature. Fever was 101 Fahrenheit max. States he feels generally ill. Denies any vomiting or diarrhea. No chest pain or shortness of breath. No recent travel or known sick contacts. I have treated and performed a rapid initial assessment of this patient. A comprehensive ED assessment and evaluation of the patient, analysis of test results and completion of medical decision making process will be conducted by additional ED providers. PHYSICAL EXAMINATION: GENERAL: Well-appearing, well-nourished and in no acute distress. A&Ox4. Answers questions appropriately. Nontoxic TRAVEL OUTSIDE OF THE U[place] IN LAST 30 DAYS: No - Related Data Allergies/Adverse Reactions: crab Allergy (Severe, Verified 03/26/18 18:05) Difficulty breathing clindamycin Allergy (Intermediate, Verified 03/26/18 18:05) rash Past Medical History - Past Medical History Cardiac Medical History: Reports: Hx Congestive Heart Failure - Diastolic dysfunction Renal/ Medical History: Denies: Hx Peritoneal Dialysis GI Medical History: Reports: Hx Gastroesophageal Reflux Disease, Hx Hepatitis - Alcohol-induced Musculoskeltal Medical History: Reports Hx Arthritis, Reports Hx Musculoskeletal Deformity, Reports Hx Musculoskeletal Trauma - Right knee dislocation Psychiatric Medical History: Reports: Hx Anxiety, Hx Attention Deficit Hyperactivity Disorder, Hx Depression Infectious Medical History: Reports: Hx Hepatitis - Alcohol-induced Past Surgical History: Reports: Hx Orthopedic Surgery - Lt Knee - Immunizations Immunizations up to date: Yes Hx Diphtheria, Pertussis, Tetanus Vaccination: Yes Doctor's Discharge - Discharge Referrals: CAROLINE,NO [Primary Care Provider] - Follow up as needed
--- NOTE | 2020-05-07 21:43 | RADIOLOGY REPORT (SQ) ---
EXAM DESCRIPTION: XR CHEST 1 VIEW COMPLETED DATE/TME: 05/07/2020 20:37 CLINICAL HISTORY: 49 years, Male, cough fever COMPARISON: Chest x-ray 02/10/2018 TECHNIQUE: PA view of the chest FINDINGS: Cardiomediastinal silhouette without active enlargement. There is mild prominence of the main pulmonary artery which is unchanged. No obvious acute lung pleural abnormalities. In the right shoulder, there is nonspecific lucency in the medial metaphyseal region. IMPRESSION: 1. No acute findings in the chest. Mild chronic prominence of the main pulmonary artery. 2. Nonspecific lucency in the proximal right humerus
--- NOTE | 2020-05-07 23:39 | ER Document Report ---
ED General - General Chief Complaint: Fever Stated Complaint: FEVER, COUGH, CHILLS Time Seen by Provider: 05/07/20 23:23 Notes: Patient is a 49 year old male that comes emergency department for chief complaint of about 3 days of worsening symptoms including mild congestion, feeling feverish, and worsening cough. Patient states he occasionally coughs up yellow sputum. He denies shortness of breath, chest pain, headache, sinus pain, ear pain, difficulty swallowing, abdominal pain. He is a former smoker, stopped smoking 8 years ago, denies history of asthma or COPD. He denies any cardiac or lung history diagnosed. He states he takes no daily medications except for anxiety/depression, he also admits to daily alcohol use and alcohol dependence. He states that he was told by work that he needs to be checked for COVID-19 because of his symptoms. TRAVEL OUTSIDE OF THE U[place] IN LAST 30 DAYS: No - Related Data Allergies/Adverse Reactions: crab Allergy (Severe, Verified 03/26/18 18:05) Difficulty breathing clindamycin Allergy (Intermediate, Verified 03/26/18 18:05) rash Past Medical History - General Information source: Patient - Social History Smoking Status: Former Smoker Frequency of alcohol use: Heavy Drug Abuse: None Lives with: Family Family History: CAD, COPD, CVA, Hyperlipidemia, Hypertension, Malignancy. denies: DM, Thyroid Disfunction Renal/ Medical History: Denies: Hx Peritoneal Dialysis GI Medical History: Reports: Hx Gastroesophageal Reflux Disease, Hx Hepatitis - Alcohol-induced Musculoskeletal Medical History: Reports Hx Arthritis, Reports Hx Musculoskel etal Deformity, Reports Hx Musculoskeletal Trauma - Right knee dislocation Psychiatric Medical History: Reports: Hx Anxiety, Hx Attention Deficit Hyperactivity Disorder, Hx Depression Infectious Medical History: Reports: Hx Hepatitis - Alcohol-induced Past Surgical History: Reports: Hx Orthopedic Surgery - Lt Knee - Immunizations Immunizations up to date: Yes Hx Diphtheria, Pertussis, Tetanus Vaccination: Yes Review of Systems - Review of Systems Constitutional: See HPI EENT: See HPI Cardiovascular: No symptoms reported Respiratory: See HPI Gastrointestinal: No symptoms reported Genitourinary: No symptoms reported Male Genitourinary: No symptoms reported Musculoskeletal: No symptoms reported Skin: No symptoms reported Hematologic/Lymphatic: No symptoms reported Neurological/Psychological: No symptoms reported Physical Exam - Vital signs Vitals: Temp Pulse Resp BP Pulse Ox 99.3 F 69 20 123/72 96 05/07/20 21:26 05/07/20 21:26 05/07/20 21:26 05/07/20 21:26 05/07/20 21:26 - Notes Notes: GENERAL: Alert, interacts well. No acute distress. HEAD: Normocephalic, atraumatic. EYES: Pupils equal, round, and reactive to light. Extraocular movements intact. ENT: Oral mucosa moist, tongue midline. Oropharynx unremarkable. Airway patent. Nares patent, sinuses non-tender, ear canals unremarkable, TM's intact. NECK: Full range of motion. Supple. Trachea midline. No lymphadenopathy. LUNGS: Intermittent congested coughing episodes but no labored breathing, tachypnea, wheezing, rales, rhonchi. Speaks in full sentences. HEART: Regular rate and rhythm. No murmur ABDOMEN: Soft, non-tender. Non-distended. EXTREMITIES: Moves all 4 extremities spontaneously. No edema, normal radial and dorsalis pedis pulses bilaterally. No cyanosis. BACK: no cervical, thoracic, lumbar midline tenderness. No saddle anesthesia, normal distal neurovascular exam. Moves all extremities in full range of motion. NEUROLOGICAL: Alert and oriented x3. Normal speech. Cranial nerves II through XII grossly intact. Strength 5/5 in all extremities. PSYCH: Normal affect, normal mood. SKIN: Warm, dry, normal turgor. No rashes or lesions noted. Course - Re-evaluation Re-evalutation: Patient does have intermittent productive cough, however his lungs are clear, he is not hypoxic, he is nondistressed. No tachycardia or fever. Chest x-ray with clear lungs, questionable chronic prominence of the pulmonary artery, nonspecific lucency in the left humerus. The area in question is nontender, there is no swelling or abnormality with range of motion, patient has not noticed any abnormality with this. CBC, chemistry unremarkable except for mildly elevated LFTs, patient does admit to alcohol abuse. I did offer placement in detox but patient after considering this declined. He states he will consider following up voluntarily himself but he is not interested in detox otherwise at this time. He is not suicidal or homicidal. Patient does not smell of alcohol, does not appear clinically intoxicated, he has no slurred words, confusion, or ataxia. Patient is requesting discharge. He is also requesting testing for COVID-19 for his work. He was provided with this, I offered to cover him with antibiotics because of his productive cough and general symptoms but he declined. I discussed return precautions at length, patient states appreciation and agreement. Patient stable and well-appearing at time of discharge. - Vital Signs Vital signs: Temp Pulse Resp BP Pulse Ox 99.0 F 70 20 124/71 99 05/08/20 01:05 05/08/20 01:05 05/08/20 01:05 05/08/20 01:05 05/08/20 01:05 - Laboratory Result Diagrams: 05/08/20 00:00 05/08/20 00:00 Laboratory results interpreted by me: 05/08/20 05/08/20 00:00 00:00 Plt Count 98 L Carbon Dioxide 31 H AST 159 H ALT 83 H Discharge - Discharge Clinical Impression: Productive cough, Chills Condition: Stable Disposition: HOME, SELF-CARE Additional Instructions: Your work-up does not show pneumonia or any concerning findings at this time. This is most likely viral and should resolve with time. This could be COVID-19, you have been tested for this, please quarantine yourself, you will be contacted with results, follow additional instructions listed below. For alcohol dependence and alcohol detox you can either return the emergency department or follow-up with the detox center referral listed below. Return for any other concerning developments including difficulty breathing, spiking fevers, or any other concerning symptoms. [facility] [address] [place] [id number] Hours: Open 24 hours As a person under investigation for COVID-19, the [place] Department of Health and Human Services (division on public health) advises you to adhere to the following guidance until your test results are reported to you. If your test result is positive, you will receive additional information from your provider and your local health department at that time. Remain at home until you are cleared by the health provider or public health authorities. Keep a log of visitors to your home, notify any visitors to your home of your isolation status. If you plan to move to a new address or leave the county, notify the local health department in your County. Call your Doctor or seek care if you have an urgent medical need. Before seeking medical care, call him to get instructions from the provider before arriving at the medical office, clinic, or hospital. Notify them that you are being tested for the virus (COVID-19) so that arrangements can be made, as necessary, to prevent transmission to others in the healthcare setting. Next, notify the local health department in your county. If a medical emergency arises and you need to call 911, inform the first responders that you are being tested for the virus that causes COVID-19. Next, notify the local health department in your county. Forms: Return to Work
[2020-05-08 00:19] LABS: RED BLOOD COUNT 4.98 10^6/uL (4.35-5.55); WHITE BLOOD COUNT 4.9 10^3/uL (4.0-10.5)
[2020-05-08 00:20] LABS: ABSOLUTE EOSINOPHILS # (AUTO) 0.1 10^3/uL (0.0-0.6); ABSOLUTE LYMPHOCYTES (AUTO) 0.9 10^3/uL (0.5-4.7); ABSOLUTE MONOCYTES (AUTO) 0.5 10^3/uL (0.1-1.4); ABSOLUTE NEUT (AUTO) 3.3 10^3/uL (1.7-8.2); BASOPHILS % (AUTO) 0.6 % (0-2); HEMATOCRIT 45.8 % (37.9-51.0); HEMOGLOBIN 15.7 g/dL (13.5-17.0); LYMPHOCYTES % (AUTO) 19.3 % (13-45); MEAN CORPUSCULAR HEMOGLOBIN 31.5 pg (27.0-33.4); MEAN CORPUSCULAR HGB CONC 34.3 g/dL (32.0-36.0); MEAN CORPUSCULAR VOLUME 92 fl (80-97); MONOCYTES % (AUTO) 10.6 % (3-13); RED CELL DISTRIBUTION WIDTH 13.5 % (11.5-14.0); SEGMENTED NEUTROPHILS % (AUTO) 66.5 % (42-78); TOTAL CELLS COUNTED % (AUTO) 100 %
[2020-05-08 00:27] LABS: ALBUMIN 4.4 g/dL (3.5-5.0); ALKALINE PHOSPHATASE 73 U/L (38-126); ANION GAP 8 (5-19); ASPARTATE AMINO TRANSFERASE 159 U/L (17-59); BILIRUBIN,DIRECT 0.2 mg/dL (0.0-0.4); BILIRUBIN,TOTAL 0.9 mg/dL (0.2-1.3); BLOOD UREA NITROGEN 12 mg/dL (7-20); CALCIUM 9.4 mg/dL (8.4-10.2); CARBON DIOXIDE 31 mmol/L (22-30); CHLORIDE 101 mmol/L (98-107); GLUCOSE 101 mg/dL (75-110); POTASSIUM 4.1 mmol/L (3.6-5.0); TOTAL PROTEIN 7.7 g/dL (6.3-8.2)
[2020-05-08 00:36] LABS: PLATELET COUNT 98 10^3/uL (150-450)
[2020-05-08 01:07] VITALS: BP 124/71
== END 2020-05-08 01:05 | disposition home or self-care (01) ==
LOC: ER 20:06
DX: U07.1 COVID-19 (principal); R05 Cough; R50.9 Fever, unspecified; R09.81 Nasal congestion; Z87.891 Personal history of nicotine dependence; Z88.1 Allergy status to other antibiotic agents; R79.89 Other specified abnormal findings of blood chemistry
CPT/HCPCS: 99283; 36415; 87040; 85025; 87635; 80053; 71045; C9803

== ENCOUNTER 2020-05-14 20:49 | Emergency (ER) | payer SELFPAY ==
--- NOTE | 2020-05-14 21:41 | ER Document Report ---
ED General - General Chief Complaint: Shortness Of Breath Stated Complaint: SHORTNESS OF BREATH, CONGESTION, MUSCLE PAIN Time Seen by Provider: 05/14/20 21:40 TRAVEL OUTSIDE OF THE [place] IN LAST 30 DAYS: No - HPI Notes: 49-year-old male presents with cough and shortness of breath. Patient was recently diagnosed with COVID. He is about 1 week into his illness. He reports mainly is concerned that his fever has not yet resolved. He states he is only taking ibuprofen. States that his fever does resolve with ibuprofen, however about 5 to 6 hours later it returns. He is not taking Tylenol. He has coughing fits but makes it feel like he cannot breathe. Some shortness of breath. Has had nausea and vomiting. Quit smoking about 8 years ago. He is a daily alcohol drinker. - Related Data Allergies/Adverse Reactions: crab Allergy (Severe, Verified 03/26/18 18:05) Difficulty breathing clindamycin Allergy (Intermediate, Verified 03/26/18 18:05) rash Past Medical History - General Information source: Patient - Social History Smoking Status: Former Smoker Frequency of alcohol use: Heavy Family History: CAD, COPD, CVA, Hyperlipidemia, Hypertension, Malignancy. denies: DM, Thyroid Disfunction - Past Medical History Cardiac Medical History: Reports: Hx Congestive Heart Failure - Diastolic dysfunction Renal/ Medical History: Denies: Hx Peritoneal Dialysis GI Medical History: Reports: Hx Gastroesophageal Reflux Disease, Hx Hepatitis - Alcohol-induced Musculoskeletal Medical History: Reports Hx Arthritis, Reports Hx Musculoskeletal Deformity, Reports Hx Musculoskeletal Trauma - Right knee dislocation Psychiatric Medical History: Reports: Hx Anxiety, Hx Attention Deficit Hyperactivity Disorder, Hx Depression Infectious Medical History: Reports: Hx Hepatitis - Alcohol-induced Past Surgical History: Reports: Hx Orthopedic Surgery - Lt Knee - Immunizations Immunizations up to date: Yes Hx Diphtheria, Pertussis, Tetanus Vaccination: Yes Review of Systems - Review of Systems Constitutional: Fever EENT: No symptoms reported Cardiovascular: denies: Chest pain Respiratory: Cough, Short of breath Gastrointestinal: Nausea, Vomiting Genitourinary: No symptoms reported Male Genitourinary: No symptoms reported Musculoskeletal: No symptoms reported Skin: No symptoms reported Hematologic/Lymphatic: No symptoms reported Neurological/Psychological: No symptoms reported Physical Exam - Vital signs Vitals: Temp Pulse Resp BP Pulse Ox 102.7 F H 95 20 148/85 H 98 05/14/20 20:56 05/14/20 20:56 05/14/20 20:56 05/14/20 20:56 05/14/20 20:56 Interpretation: Febrile - General General appearance: Appears well In distress: None - HEENT Head: Normocephalic, Atraumatic Eyes: Normal Pupils: PERRL - Respiratory Respiratory status: No respiratory distress Breath sounds: Nonproductive cough - Coughs frequently during exam. No: Rhonchi, Wheezing - Cardiovascular Rhythm: Regular Heart sounds: Normal auscultation Normal capillary refill: Yes - Abdominal Distension: No distension Tenderness: Nontender - Extremities General upper extremity: Normal inspection General lower extremity: Normal inspection - Neurological Neuro grossly intact: Yes Cognition: Normal Orientation: AAOx4 - Psychological Associated symptoms: Normal affect - Skin Skin Temperature: Warm Course - Re-evaluation Re-evalutation: 49-year-old known to be COVID positive here for continuing symptoms. He is nontoxic-appearing on exam, lungs are actually fairly clear, does cough frequently during exam. He is febrile, Tylenol was given. Labs were checked per protocol process. Chest x-ray ordered. Will treat symptomatically with albuterol, Robitussin. Feel that his symptoms represent known COVID disease process. Would have low suspicion for superimposed pneumonia. Does not have an oxygen requirement. 05/14/20 22:57 Appears to have chronic thrombocytopenia, value has increased since May 08, suspect likely due to alcoholism. No leukocytosis or left shift. No lymphopenia. Electrolytes okay. Lactic acid negative. AST and ALT are elevated, possible combination of COVID and alcoholism 05/14/20 23:15 Into reassess patient, he looks more comfortable. He is requesting Phenergan for nausea, will order. Patient states that he drinks a lot and feels that he might need a little something currently, have ordered a dose of oral Ativan. He currently is not tachycardic, flushed or having overt tremors. Working to find out if we have albuterol MDI, in the meantime have ordered DuoNeb. Patient was discharged with albuterol MDI and Phenergan. He was also requesting a sleep aid, have prescribed a short course of hydroxyzine. Return precautions were given, he was stable at time of discharge. - Vital Signs Vital signs: Temp Pulse Resp BP Pulse Ox 102.7 F H 95 20 148/85 H 98 05/14/20 20:56 05/14/20 20:56 05/14/20 20:56 05/14/20 20:56 05/14/20 20:56 - Laboratory Result Diagrams: 05/14/20 21:45 05/14/20 21:45 Laboratory results interpreted by me: 05/14/20 05/14/20 21:45 21:45 Plt Count 112 L [place] % (Auto) 17.4 H Sodium 134.9 L AST 278 H ALT 105 H Discharge - Discharge Clinical Impression: COVID-19 virus infection Condition: Stable Disposition: HOME, SELF-CARE Instructions: Fever ([facility]) Additional Instructions: Use Atarax/hydroxyzine to help sleep. Please begin use of Tylenol for fever. Use albuterol for shortness of breath. Can also begin use of [id number] cough syrup or Mucinex. Use Phenergan as needed for nausea. Drink plenty of fluids. Please continue to isolate at home. Return to the ED for worsening or concerning symptoms. Prescriptions: Hydroxyzine Pamoate [Vistaril 50 mg Capsule] 50 mg PO QHS #30 capsule Promethazine HCl [Phenergan 25 mg Tablet] 1 tab PO Q6H PRN #15 tablet PRN Reason: Albuterol Sulfate [Proair HFA Inhalation Aerosol 8.5 gm MDI] 2 puff IH Q4H PRN #1 mdi PRN Reason:
[2020-05-14] MEDS ORDERED: NORMAL SALINE 1000 ML 1,000 ML IV ONE (21:48)
[2020-05-14] MEDS ORDERED: ONDANSETRON 4 MG TAB.RAPDIS PO ONE (21:49)
[2020-05-14] MEDS ORDERED: ACETAMINOPHEN 325 MG TABLET PO ONE (21:50)
[2020-05-14] MEDS ORDERED: ALBUTEROL SULFATE HFA (90 MCG/PUFF) 8 GM MDI (1 MDI/ER DISP) IH ONE (22:10)
[2020-05-14] MEDS ORDERED: GUAIFENESIN/D-METHORPHAN (200-20 MG) SYRUP 10 ML PO ONE (22:11)
[2020-05-14 22:21] LABS: ABSOLUTE EOSINOPHILS # (AUTO) 0.1 10^3/uL (0.0-0.6); ABSOLUTE LYMPHOCYTES (AUTO) 0.6 10^3/uL (0.5-4.7); ABSOLUTE MONOCYTES (AUTO) 0.8 10^3/uL (0.1-1.4); ABSOLUTE NEUT (AUTO) 2.9 10^3/uL (1.7-8.2); BASOPHILS % (AUTO) 0.2 % (0-2); EOSINOPHILS % (AUTO) 1.4 % (0-6); HEMATOCRIT 43.4 % (37.9-51.0); HEMOGLOBIN 15.1 g/dL (13.5-17.0); LYMPHOCYTES % (AUTO) 14.4 % (13-45); MEAN CORPUSCULAR HEMOGLOBIN 31.9 pg (27.0-33.4); MEAN CORPUSCULAR HGB CONC 34.8 g/dL (32.0-36.0); MEAN CORPUSCULAR VOLUME 92 fl (80-97); MONOCYTES % (AUTO) 17.4 % (3-13); RED BLOOD COUNT 4.74 10^6/uL (4.35-5.55); RED CELL DISTRIBUTION WIDTH 12.9 % (11.5-14.0); SEGMENTED NEUTROPHILS % (AUTO) 66.6 % (42-78); TOTAL CELLS COUNTED % (AUTO) 100 %; WHITE BLOOD COUNT 4.3 10^3/uL (4.0-10.5)
[2020-05-14 22:38] LABS: PLATELET COUNT 112 10^3/uL (150-450)
[2020-05-14 22:42] LABS: ALBUMIN 4.1 g/dL (3.5-5.0); ALKALINE PHOSPHATASE 74 U/L (38-126); ANION GAP 8 (5-19); ASPARTATE AMINO TRANSFERASE 278 U/L (17-59); BILIRUBIN,DIRECT 0.3 mg/dL (0.0-0.4); BILIRUBIN,TOTAL 1.3 mg/dL (0.2-1.3); BLOOD UREA NITROGEN 10 mg/dL (7-20); CALCIUM 9.1 mg/dL (8.4-10.2); CARBON DIOXIDE 29 mmol/L (22-30); CHLORIDE 98 mmol/L (98-107); GLUCOSE 100 mg/dL (75-110); POTASSIUM 4.2 mmol/L (3.6-5.0); TOTAL PROTEIN 7.5 g/dL (6.3-8.2)
--- NOTE | 2020-05-14 23:11 | RADIOLOGY REPORT (SQ) ---
CLINICAL INDICATION: +COVID. TECHNIQUE: A single portable AP view was obtained of the chest at 2241 hours. COMPARISON: May 07, 2020. FINDINGS: The cardiomediastinal silhouette is top normal but stable. The lungs demonstrate minimal streaky change left base. No evidence of effusion or pneumothorax. The visualized bones are unremarkable. IMPRESSION: Minimal streaky change left base.
[2020-05-14] MEDS ORDERED: IPRATROPIUM/ALBUTEROL 0.5-2.5 MG/3 ML AMPUL NEB ONE (23:14)
[2020-05-14] MEDS ORDERED: LORAZEPAM 1 MG TABLET PO ONE (23:14)
[2020-05-14] MEDS ORDERED: PROMETHAZINE HCL INJ 25 MG/1 ML VIAL IV ONE (23:14)
[2020-05-15 00:19] LABS: APPEARANCE,URINE CLEAR; BILIRUBIN,URINE NEGATIVE (NEGATIVE); COLOR,URINE YELLOW; GLUCOSE, URINE NEGATIVE (NEGATIVE); KETONES,URINE NEGATIVE (NEGATIVE); LEUKOCYTE ESTERASE,URINE NEGATIVE (NEGATIVE); NITRITE,URINE NEGATIVE (NEGATIVE); PROTEIN,URINE NEGATIVE (NEGATIVE); URINE SPECIFIC GRAVITY 1.004; UROBILINOGEN,URINE NEGATIVE mg/dL (<2.0)
[2020-05-15 07:53] VITALS: BP 112/85
== END 2020-05-15 00:35 | disposition home or self-care (01) ==
LOC: ER 20:49
DX: U07.1 COVID-19 (principal); R06.02 Shortness of breath; R09.81 Nasal congestion; M79.10 Myalgia, unspecified site; R05 Cough; Z88.1 Allergy status to other antibiotic agents; Z87.891 Personal history of nicotine dependence
CPT/HCPCS: 94640 ×2; 99284; 96361; 96374; 36415; 87040; 83605; 85025; 80053; 81001; 71045; S0119; J2550; J3490; J7030